=== PATIENT | male | born 1985 | race Caucasian/White ===

== ENCOUNTER 2023-12-17 11:20 | Emergency (ER) | payer OTHER, SELFPAY ==
[2023-12-17 11:21] VITALS: BP 131/92
[2023-12-17] MEDS: PEPCID 20 MG PO (12:44)
[2023-12-17] MEDS: BENADRYL 25 MG PO (12:44)
[2023-12-17] MEDS: DELTASONE 50 MG PO (12:44)
[2023-12-17] MEDS: ADRENALIN 0.3 MG IM (12:45)
--- NOTE | 2023-12-17 12:51 | ED.GENMED ---
History of Present Illness
General
Chief Complaint: Skin Problem
Source: patient and spouse
Exam Limitations: none
Time Seen by Provider: 12/17/23 11:45
Nursing documentation reviewed up to this point in time: agreed with
History of Present Illness
History of Present Illness:
38-year-old male with a past medical history of hyperlipidemia, diabetes who presents to the emergency room with his for evaluation of rash. Patient reports that he had a febrile illness that lasted from Sunday until last week (4
days)�primary symptoms were fever, cough, headache. He says that he had minor rash on Sunday and went to urgent care was told it was likely a viral exanthem; over the past 24 hours rash has become more diffuse and pruritic�he has hives essentially
over his entire body excluding his face. He has noticed some conjunctivitis. He says he has a 'cold sore' right upper lip. He denies any chest pain or shortness of breath. He denies any abdominal pain, nausea, vomiting. He denies similar issues
in the past. He denies any new medications or food exposures. He denies any known allergies.
Review of Systems
Review of Systems
All Other Systems: ROS reviewed and negative except as documented in HPI and ROS
Constitutional: Denies fever
EENT: Denies sore throat
Respiratory: Denies cough or trouble breathing
Cardiac: Denies chest pain
ABD/GI: Denies abdominal pain, nausea, vomiting or diarrhea
: Denies flank pain
Musculoskeletal: Denies neck pain or back pain
Skin: Reports itching and rash
Neurological: Denies dizzy or headache
Phy Exam
Physical Exam
Physical Exam:
General: Awake, alert; no acute distress
Head: Normocephalic, atraumatic
Eyes: Slight bilateral conjunctival injection
Throat: Airway intact, handling secretions, tongue appears normal without signs of strawberry tongue, no oral ulcerations/stomatitis appreciated, minor cold sore right upper lip
Neck: Trachea midline, supple without meningismus
Lungs: Clear to auscultation bilaterally, no wheezing, rales, rhonchi
Heart: Regular rate and rhythm, no murmurs, gallops, or rubs
Abd: Soft, non distended, nontender
Neuro: No gross deficits
Skin: Patient has hives/urticaria over the entirety of his body including entirety of his trunk, entirety of the upper extremities, entirety of the lower extremities; spares the face
Extremities: Urticaria; distal extremities warm well-perfused with good pulses
Scores
Heart Failure Risk
Heart Failure Risk Score: Not Applicable
Heart Score for Chest Pain Patients
STEMI patient?: Not applicable
Withdrawal Assessment of Alcohol
Withdrawal Assessment Completed?: Not applicable
Course
Orders/Labs/Results
Orders:
Orders
12/17/23 12:39
Diphenhydramine [Benadryl] 25 mg PO NOW STA
EPINEPHrine PF [Adrenalin] 0.3 mg IM NOW STA
Famotidine [Pepcid] 20 mg PO NOW STA
Prednisone [Deltasone] 50 mg PO NOW STA
12/17/23 13:43
CRP [C-Reactive Protein] Urgent
Complete Blood Count/With Diff Urgent
Comprehensive Metabolic Panel Urgent
ESR [Erythrocyte Sed Rate] Urgent
Lyme PCR, DNA [S] Urgent
[facility] Spotted Fever IgG&IgM [S] Urgent
12/17/23 15:01
Miscellaneous Order As Directed
Miscellaneous order: [facility] #[id number]
12/17/23 15:04
Doxycycline [Vibramycin] 100 mg PO NOW STA
Abnormal Lab Results
12/17/23
13:43
RBC 4.68 L 10^6/uL
(4.70-6.10)
MCH 31.8 H pg
(27.0-31.0)
Abs Immat Gran (auto) 0.1 H 10^3/uL
(0-0.05)
Absolute Neuts (auto) 7.8 H 10^3/uL
(1.4-6.5)
Immature Gran % 0.8 H %
(0-0.5)
Lymphocytes % 15.5 L %
(20.5-51.1)
ESR 38 H mm/hour
(0-20)
Sodium 132 L mmol/L
(135-145)
Carbon Dioxide 21 L mmol/L
(22-30)
Glucose 325 H mg/dl
(70-99)
ALT 67 H U/L
(0-50)
C-Reactive Protein 84.40 H mg/L
(0.0-10.00)
12/17/23 13:43
12/17/23 13:43
Vital Signs
Initial and Last Documented VS:
Initial Vital Signs
Temp Pulse Resp BP Pulse Ox
36.6 C 118 20 131/92 100
12/17/23 11:21 12/17/23 11:21 12/17/23 11:21 12/17/23 11:21 12/17/23 11:21
Last Documented Vital Signs
Temp Pulse Resp BP Pulse Ox
36.6 C 118 20 131/92 100
12/17/23 11:21 12/17/23 11:21 12/17/23 11:21 12/17/23 11:21 12/17/23 11:21
MDM/Problems Addressed
Differential Diagnosis Includes:
Viral exanthem, vasculitis, anaphylaxis/allergic reaction, drug rash, tickborne illness ([place] spotted fever)
MDM/Problems Addressed:
38-year-old male presents for evaluation of diffuse pruritic rash over the entirety of his body. Tachycardic but otherwise normal vitals. Physical exam as above. Will treat for possible allergic reaction with epi, prednisone, antihistamines.
Reassess after the above.
Patient with improvement in pruritus but rash appears essentially unchanged on reassessment after meds as above. Will plan to check labs including screening for tickborne illness.
Labs reviewed: CBC unremarkable, CMP shows hyperglycemia in the setting of known diabetes. CRP was slightly elevated. Case discussed with infectious disease given nonspecific symptoms and now rash eruption�at least some concern for rickettsial
infection/RMSF as he does have some lesions on palms of his hands. He does not appear toxic. They recommended sending Rickettsia IgG and IgM as well as sending a tickborne illness panel ([facility] #[id number]). Discussed with lab and they will send this
study. Recommended empiric treat with doxycycline 100 mg twice daily x 14 days. I had a long discussion with the patient he feels comfortable with this. We did discuss his elevated blood sugar at length as well�he has no diabetes, is on
metformin; advised to watch his blood glucose using monitor very closely avoid carbohydrates and follow-up with his PCP soon as possible to discuss further management. He indicated understanding and is comfortable with this plan. I spoke to the
patient at length about return precautions and all questions were answered.
*Pulse Oximetry
Patient hypoxic: no
*Critical Care Note
Total Time (30-74mins, 75-104mins- exclusive of procedures): Not Applicable
Data Reviewed
Source: patient and spouse
Patient Management
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
ED Attending Note
-
Portions of this chart may have been created with voice recognition software.� Occasional wrong word or��sound alike� substitutions may have occurred due to the inherent limitations of voice recognition software.
Discharge Plan
Departure
Patient Disposition: Home (Routine Discharge)
Date of Disposition: 12/17/23
Time of Disposition: 15:15
Patient with high blood pressure during this ER visit?: No
Discharge Problem:
Rash, Hyperglycemia
Instructions: Skin Rash (DC), High Blood Sugar, Adult ED
Prescriptions:
New
doxycycline hyclate 100 mg tablet
100 mg PO BID 14 Days Qty: 28 0RF
Referrals:
NONE,* [Family Provider] -
Activity Restrictions/Additional Instructions:
Thank you for visiting the Emergency Department at [facility].
1. Please schedule a follow up appointment as directed. Call first thing tomorrow morning to make an appointment.
2. If indicated, please take your medications as instructed and indicated on discharge paperwork.
3. If any of your symptoms do not improve, or persist, or become more severe within 6-12 hours, please return to the emergency department for further care.
4. Please return to the emergency department if you develop a headache, neck pain/stiffness, fever greater than 100.4F, chest pain, shortness of breath, persistent nausea, vomiting, slurred speech, difficulty walking, numbness/tingling, weakness,
signs of infection or any other symptoms that are worrisome to you.
Please call [phone] if you have any questions.
Interventions
Interventions:
*Risk Screen - Suicide Last Done: 12/17/23 11:21
*General Assessment Last Done: 12/17/23 11:21
*Neglect/Abuse Screening Last Done: 12/17/23 11:21
ED-Skin Assessment Last Done: 12/17/23 13:58
Discharge Date and Time
Print Language: MALAGASY
[2023-12-17 13:14] VITALS: BP 131/89
[2023-12-17 14:00] VITALS: BP 130/80
[2023-12-17 14:20] LABS: ALT (SGPT) 67 U/L (0-50); AST (SGOT) 39 U/L (17-59); Albumin 3.7 g/dl (3.5-5.0); Alkaline Phosphatase 109 U/L (38-126); Blood Urea Nitrogen 10 mg/dl (9-20); Calcium 9.1 mg/dl (8.4-10.2); Glucose 325 mg/dl (70-99); Total Bilirubin 0.9 mg/dl (0.2-1.3); Total Protein 6.5 g/dl (6.3-8.2); eGFR > 60.00
[2023-12-17 14:21] LABS: % Basophils 0.4 % (0-2); % Eosinophils 4.1 % (0-6); % Immature Granulocytes 0.8 % (0-0.5); % Lymphocytes 15.5 % (20.5-51.1); % Monocytes 4.5 % (1.7-9.3); % Neutrophils 74.7 % (42.2-75.2); Absolute Eosinophils 0.4 10^3/uL (0-0.7); Absolute Immature Granulocytes 0.1 10^3/uL (0-0.05); Absolute Lymphocytes 1.6 10^3/uL (1.2-3.4); Absolute Monocytes 0.5 10^3/uL (0.1-0.6); Absolute Neutrophils 7.8 10^3/uL (1.4-6.5); Hematocrit 41.3 % (39.0-52.0); Hemoglobin 14.9 g/dL (13.0-18.0); Mean Corp Hgb Conc. 36.1 g/dL (33.0-37.0); Mean Corpuscular Hgb 31.8 pg (27.0-31.0); Mean Corpuscular Volume 88.2 fL (80.0-94.0); Mean Platelet Volume 9.4 fL (7.4-10.4); Nucleated Red Blood Cells % 0 % (-); Platelet Count 232 10^3/uL (130-400); Red Blood Cell Count 4.68 10^6/uL (4.70-6.10); Red Cell Dist. Width 12.6 % (11.5-14.5); White Blood Cell Count 10.4 10^3/uL (4.8-10.8)
[2023-12-17 14:22] LABS: Erythrocyte Sed Rate 38 mm/hour (0-20)
[2023-12-17 15:00] VITALS: BP 128/89
[2023-12-17 15:16] LABS: Carbon Dioxide 21 mmol/L (22-30); Chloride 99 mmol/L (98-107); Potassium 4.2 mmol/L (3.5-5.1); Sodium 132 mmol/L (135-145)
[2023-12-17] MEDS: VIBRAMYCIN 100 MG PO (15:29)
[2023-12-17 15:31] LABS: Glucose - Point of Care 328 mg/dl (70-99)
[2023-12-20 18:27] LABS: Lyme Disease DNA by PCR Not Detected; Lyme Source Serum
[2023-12-21 07:35] LABS: RMSF IgG Antibodies <1:64 (<1:64); RMSF IgM Antibodies <1:64 (<1:64)
== END 2023-12-17 16:10 | disposition home or self-care (01) ==
LOC: EMR 11:20
PROVIDERS: EMERGENCY PHYSICIAN Emergency Medicine
DX: E11.65 Type 2 diabetes mellitus with hyperglycemia (principal); R21 Rash and other nonspecific skin eruption; L29.9 Pruritus, unspecified; B00.1 Herpesviral vesicular dermatitis; E78.5 Hyperlipidemia, unspecified; Z79.84 Long term (current) use of oral hypoglycemic drugs
CPT/HCPCS: 99284; 96372; 80053; 82962; 85025; 85652; 86140; 86757; 87476

== ENCOUNTER 2024-05-14 19:39 | Emergency (ER) | payer OTHER, SELFPAY ==
[2024-05-14 19:49] VITALS: BP 130/93
[2024-05-14 20:17] LABS: % Basophils 0.3 % (0-2); % Eosinophils 0.3 % (0-6); % Immature Granulocytes 0.5 % (0-0.5); % Lymphocytes 14.7 % (20.5-51.1); % Monocytes 6.6 % (1.7-9.3); % Neutrophils 77.6 % (42.2-75.2); Absolute Immature Granulocytes 0.1 10^3/uL (0-0.05); Absolute Lymphocytes 1.7 10^3/uL (1.2-3.4); Absolute Monocytes 0.8 10^3/uL (0.1-0.6); Absolute Neutrophils 8.9 10^3/uL (1.4-6.5); Hemoglobin 14.4 g/dL (13.0-18.0); Mean Corp Hgb Conc. 35.1 g/dL (33.0-37.0); Mean Corpuscular Hgb 31.2 pg (27.0-31.0); Mean Corpuscular Volume 88.9 fL (80.0-94.0); Nucleated Red Blood Cells % 0 % (-); Platelet Count 301 10^3/uL (130-400); Red Blood Cell Count 4.61 10^6/uL (4.70-6.10); Red Cell Dist. Width 12.8 % (11.5-14.5); White Blood Cell Count 11.5 10^3/uL (4.8-10.8)
[2024-05-14 20:31] LABS: Blood Urea Nitrogen 12 mg/dl (9-20); Calcium 9.6 mg/dl (8.4-10.2); Carbon Dioxide 23 mmol/L (22-30); Chloride 98 mmol/L (98-107); Glucose 368 mg/dl (70-99); Potassium 4.1 mmol/L (3.5-5.1); Sodium 135 mmol/L (135-145); eGFR > 60.00
[2024-05-14 20:35] LABS: COVID-19 Antigen Negative (Negative)
[2024-05-14 20:43] VITALS: BP 121/87
[2024-05-14 21:00] VITALS: BP 129/82
--- NOTE | 2024-05-14 21:56 | ED.GENMED ---
History of Present Illness
General
Chief Complaint: Abdominal Symptoms
Source: patient
Exam Limitations: none
Time Seen by Provider: 05/14/24 21:44
History of Present Illness
History of Present Illness:
38-year-old male presents with overall sensation of feeling unwell. He was sick with upper respiratory symptoms 1 week ago took 2 COVID tests at home both of which were invalid. He states his did test positive for COVID. Tonight he came
because he had several episodes of vomiting. At this point he denies abdominal pain chest pain or shortness of breath. He denies any residual upper respiratory symptoms. He feels fatigued. He feels nauseous. No diarrhea. No other complaints at
this time
Phy Exam
Physical Exam
Physical Exam:
General: Well-appearing male no acute respiratory distress
HEENT: Normocephalic atraumatic mucosa moist neck is supple
Heart: Regular rate and rhythm no murmurs lungs: Clear no wheeze
Abdomen is soft nontender nondistended no guarding rebound normal bowel sounds
Extremities: No cyanosis or edema
Course
Orders/Labs/Results
Orders:
Orders
05/14/24 19:41
Electrocardiogram (*1) Urgent
Reason for Study: Vertigo / Dizzy
EKG- Treatment ONCE
05/14/24 20:04
Basic Metabolic Panel Urgent
COVID-19 Antigen Urgent
Source: Nasal Swab
Complete Blood Count/With Diff Urgent
Influenza A+B Rapid Molecular Urgent
ZACHARY Source: Nasal Swab
Specimen Description:
05/14/24 21:37
Influenza A+B Rapid Molecular Urgent
ZACHARY Source: [facility]
Specimen Description:
05/14/24 21:54
0.9% Sodium Chloride 1000 ml [Nss] 1,000 ml IV BOLUS
Abnormal Lab Results
05/14/24
20:04
WBC 11.5 H 10^3/uL
(4.8-10.8)
RBC 4.61 L 10^6/uL
(4.70-6.10)
MCH 31.2 H pg
(27.0-31.0)
Abs Immat Gran (auto) 0.1 H 10^3/uL
(0-0.05)
Absolute Neuts (auto) 8.9 H 10^3/uL
(1.4-6.5)
Absolute Monos (auto) 0.8 H 10^3/uL
(0.1-0.6)
Neutrophils % 77.6 H %
(42.2-75.2)
Lymphocytes % 14.7 L %
(20.5-51.1)
Creatinine 0.5 L mg/dL
(0.7-1.3)
Glucose 368 H mg/dl
(70-99)
05/14/24 20:04
05/14/24 20:04
Vital Signs
Initial and Last Documented VS:
Initial Vital Signs
Temp Pulse Resp BP Pulse Ox
98.0 F 82 20 130/93 98
05/14/24 19:49 05/14/24 19:49 05/14/24 19:49 05/14/24 19:49 05/14/24 19:49
Last Documented Vital Signs
Temp Pulse Resp BP Pulse Ox
98.0 F 78 20 121/87 100
05/14/24 19:49 05/14/24 20:48 05/14/24 20:48 05/14/24 20:43 05/14/24 20:48
MDM/Problems Addressed
Differential Diagnosis Includes:
Nausea vomiting without diarrhea. Question viral illness. COVID test here was negative. Abdominal exam benign considered imaging such as ultrasound or CT however not indicated secondary to benign exam. Patient is a xci-wfuldyj-stivjroca
diabetic. Serum glucose is 368.
Will hydrate.
*Critical Care Note
Total Time (30-74mins, 75-104mins- exclusive of procedures): Not Applicable
Update Note
Update Note:
Patient change his mind. He did not want to wait here for IV fluids. He states he is feeling better and wants to go home. Recommended clear liquids for now and Zofran was prescribed in case the nausea returns.
ED Attending Note
-
Portions of this chart may have been created with voice recognition software.� Occasional wrong word or��sound alike� substitutions may have occurred due to the inherent limitations of voice recognition software.
Discharge Plan
Departure
Patient Disposition: Home (Routine Discharge)
Date of Disposition: 05/14/24
Time of Disposition: 22:16
Patient with high blood pressure during this ER visit?: No
Discharge Problem:
Vomiting
Instructions: Nausea and Vomiting, Adult (DC)
Prescriptions:
New
ondansetron 4 mg tablet,disintegrating
4 mg PO Q8H PRN (Reason: nausea and vomiting) Qty: 10 0RF
No Action
doxycycline hyclate 100 mg tablet
100 mg PO BID 14 Days Qty: 28 0RF
Referrals:
NONE,* [Family Provider] -
Activity Restrictions/Additional Instructions:
Drink plenty clear liquids. Advance to bland diet as tolerated. Use Zofran if needed for nausea. Return if worse
Interventions
Interventions:
*Risk Screen - Suicide Last Done: 05/14/24 19:49
*General Assessment Last Done: 05/14/24 19:49
*Neglect/Abuse Screening Last Done: 05/14/24 19:49
ED- Fall Risk Assessment Last Done: 05/14/24 20:46
*ED COVID-19 Vaccine History Last Done: 05/14/24 20:22
TG-Uwysld-Caoaijbiqp Assessment Last Done: 05/14/24 20:46
ED- Pulmonary Assessment Last Done: 05/14/24 20:46
Discharge Date and Time
Print Language: PORTUGUESE
[2024-05-14 22:00] VITALS: BP 135/93
== END 2024-05-14 22:24 | disposition home or self-care (01) ==
LOC: EMR 19:39
PROVIDERS: EMERGENCY PHYSICIAN Emergency Medicine
DX: R11.2 Nausea with vomiting, unspecified (principal); R42 Dizziness and giddiness; Z11.52 Encounter for screening for COVID-19; Z20.822 Contact with and (suspected) exposure to COVID-19; E11.65 Type 2 diabetes mellitus with hyperglycemia
CPT/HCPCS: 99283; 80048; 85025; 87502; 87811; 93005